=== PATIENT | male | born 1995 | race Caucasian/White ===

== ENCOUNTER 2020-07-20 13:48 | Emergency (ER) | payer BC, SELFPAY ==
--- NOTE | ~2020-07-20 | US_ITS ---
EXAMINATION:US venous doppler LE LT INDICATION:Recent surgery. Leg coolness. Evaluate for DVT. TECHNIQUE: Multiple grayscale, color flow and Doppler images of the left lower extremity deep venous systems were obtained and reviewed. COMPARISON:No prior studies for comparison. FINDINGS: The common femoral, superficial femoral and popliteal veins demonstrate normal respiratory variation, augmentation and compressibility. Color flow is also seen within the posterior tibial, pe roneal, greater saphenous and profunda veins. IMPRESSION: 1: No lower extremity deep venous thrombosis. Reviewed, dictated and finalized at location A. ERY ANALYST
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
[2020-07-20 14:16] VITALS: PULSE 85; RESP 16; TEMP 37; O2SAT 100
[2020-07-20 14:22] LABS: Basophils Absolute Auto 0.1 K/mm3 (0.0-0.1); Eosinophils Absolute Auto 1.1 K/mm3 (0-0.3); Eosinophils Percent Auto 11.1 % (0-4.4); Hematocrit 48.1 % (42.0-52.0); Hemoglobin 15.7 g/dL (14.0-18.0); Immature Granulocyte Absolute 0.04 K/mm3 (0.00-0.031); Immature Granulocyte Percent A 0.4 % (0-0.5); Lymphocytes Absolute Auto 3.15 K/mm3 (0.9-3.2); Mean Corpuscular HGB Conc 32.6 g/dl (32-36); Mean Corpuscular Hemoglobin 31.2 pg (26-34); Mean Corpuscular Volume 95.6 fl (80-100); Mean Platelet Volume 10.8 fl (7.4-10.4); Monocytes Absolute Auto 0.9 K/mm3 (0.1-0.6); Monocytes Percent Auto 9.7 % (2.6-8.5); Neutrophils Absolute Auto 4.3 K/mm3 (1.3-6.7); Neutrophils Percent Auto 44.8 % (45.5-73.1); Platelet Count Result 300 k/mm3 (150-375); Red Blood Count 5.03 M/mm3 (4.6-6.20); Red Cell Distribution Width 12.3 % (11.5-14.5); White Blood Count 9.6 K/mm3 (4.5-10.0)
[2020-07-20 14:28] LABS: Estimated CRCL calculation 95 ml/min; Estimated Glomerular Filt Rate > 60
[2020-07-20 14:33] LABS: Anion Gap 8 mmol/L (8-16); Blood Urea Nitrogen 13 mg/dL (9-20); Calcium 9.7 mg/dL (8.4-10.2); Carbon Dioxide 28 mmol/L (22-30); Chloride 105 mmol/L (98-107); Estimated CRCL calculation 95 ml/min; Estimated Glomerular Filt Rate > 60; Glucose 105 mg/dL (75-110); Potassium 3.7 mmol/L (3.4-5.0); Sodium 141 mmol/L (137-145)
[2020-07-20 14:43] LABS: INR 0.9; Prothrombin Time 12.8 Seconds (11.1-14.7)
[2020-07-20] MEDS: HEPARIN SODIUM 5,000 UNITS/ML VIAL 7000 UNITS IV PUSH (14:44)
[2020-07-20 14:45] LABS: Partial Thromboplastin Time 28.1 SECONDS (22.3-36.8)
[2020-07-20] MEDS: HEPARIN SOD/D5W 100 UNITS/ML 25,000 UNITS/250 ML BAG 15 UNITS IV CONT (14:46)
[2020-07-20 15:34] VITALS: PULSE 68; RESP 18; O2SAT 98
[2020-07-20 16:18] VITALS: PULSE 63; RESP 17; O2SAT 99
[2020-07-20 16:43] VITALS: PULSE 63; RESP 15; O2SAT 98
[2020-07-20 16:45] VITALS: PULSE 62; RESP 17; O2SAT 98
--- NOTE | 2020-07-20 16:55 | PC.NURSE ---
provider has talked with ortho at [facility]. waiting for further orders from our provider vs disposition.
== END 2020-07-20 17:12 | disposition home or self-care (01) ==
PROVIDERS: Emergency Provider Emergency Medicine
DX: I73.9 Peripheral vascular disease, unspecified (principal); Z79.82 Long term (current) use of aspirin; Z87.891 Personal history of nicotine dependence
CPT/HCPCS: 36415; 73706; 80048; 85025; 85610; 85730; 93971; 96365; 99284; J1644; Q9967